=== PATIENT | female | born 1955 | race Caucasian/White ===

== ENCOUNTER 2025-04-19 15:59 | Emergency (ER) | payer BC, MEDICARE ==
[~2025-04-19] VITALS: Ht 172.7 cm; Wt 78.2 kg
[~2025-04-19 15:59] MED LIST: HYDR12.55 PO; LISI40TA13 PO
--- NOTE | 2025-04-19 16:10 | ELECTROCARDIOGRAPH REPORT ---
[facility] Test Date: 2025-04-19 Test Time: 16:07:32 Pat Name: WILLIAM RODRIGUEZ Department: EMERGENCY ROOM Room: Gender: F Mechanic Insulator: CELI : 1955 Requested By: PEDRO LEBLANC Order Number: [id number] Reading MD: Measurements Intervals [place] Rate: 85 P: 0 SD: 0 QRS: 27 QRSD: 95 T: 71 QT: 394 QTc: 469 Interpretive Statements Atrial fibrillation Borderline T abnormalities, anterior leads Please click the below link to view image of tracing.
--- NOTE | 2025-04-19 16:41 | RADIOLOGY REPORT ---
CHEST RADIOGRAPH Indication: CP Technique: Single frontal view of the chest was obtained Comparison: DI CHEST,SINGLE VIEW on DOS: 07/01/23 FINDINGS: Lines and Tubes: None Lungs: No focal consolidation. Pleura: No effusion. No pneumothorax. Cardiomediastinal contours: Mild global cardiomegaly. Uncoiling atherosclerotic change thoracic aorta Bones: No acute osseous abnormality. Deformity of the right ribs suggesting old right ribs fractures IMPRESSION: 1. Mild cardiomegaly 2. No evidence of airspace consolidation or pulmonary venous congestion.
[2025-04-19 17:25] LABS: BASOPHILS # (AUTO) 0.1 X10'3 (0-0.2); BASOPHILS % (AUTO) 1.2 % (0-1); EOSINOPHILS # (AUTO) 0.2 X10'3 (0-0.9); EOSINOPHILS % (AUTO) 2.5 % (0-6); HEMOGLOBIN 13.7 g/dl (12.0-16.0); LYMPHOCYTES # (AUTO) 1.9 X10'3 (1.1-4.8); LYMPHOCYTES % (AUTO) 28.2 % (21-51); MEAN CORPUSCULAR HEMOGLOBIN 28.6 PG (27.0-31.0); MEAN CORPUSCULAR HGB CONC 32.5 g/dL (33.0-36.5); MEAN PLATELET VOLUME 9.5 FL (7.4-10.4); MONOCYTES # (AUTO) 0.8 X10'3 (0-0.9); MONOCYTES % (AUTO) 12.6 % (2-12); NEUTROPHILS # (AUTO) 3.7 X10'3 (1.8-7.7); NEUTROPHILS % (AUTO) 55.5 % (42-75); PLATELET COUNT 212 X10'3 (140-440); RED BLOOD COUNT 4.78 X10'6 (4.20-5.60); RED CELL DISTRIBUTION WIDTH 15.3 % (11.5-14.5); WHITE BLOOD COUNT 6.7 X10'3 (4.5-11.0)
[2025-04-19 17:33] LABS: ALANINE AMINOTRANSFERASE 35 U/L (12-78); ALBUMIN 3.5 G/DL (3.4-5.0); ALBUMIN/GLOBULIN RATIO 0.9 (1.1-1.5); ALKALINE PHOSPHATASE 89 IU/L (46-116); ANION GAP 8 (8-16); ASPARTATE AMINO TRANSFERASE 24 U/L (10-37); BILIRUBIN,TOTAL 0.6 MG/DL (0.1-1.0); BLOOD UREA NITROGEN 28 MG/DL (7-18); BUN/CREATININE RATIO 22.6 (10.0-20.0); CALCIUM 8.7 MG/DL (8.5-10.1); CHLORIDE 102 MMOL/L (99-107); CREATININE 1.24 MG/DL (0.40-0.90); GLUCOSE 118 MG/DL (70-104); POTASSIUM 3.7 MMOL/L (3.5-5.1); SODIUM 139 MMOL/L (135-145); TOTAL PROTEIN 7.6 G/DL (6.4-8.2); eCRCL 44 ML/MIN; eGFR 43 ML/MIN
[2025-04-19 17:41] LABS: PRO BRAIN NATRIURETIC PEPTIDE 1112 PG/ML (0-125)
--- NOTE | 2025-04-19 20:22 | Physician Documentation ---
History of Present Illness ~ Chief Complaint: Shortness of Breath Stated Complaint: AFIB Time Seen by MD: 20:14 Source: patient HPI 69-year-old female, with a reported history of atrial fibrillation and CHF, presenting with shortness of breath and rapid heart rate. She tells me that she was recently at the hospital in [place], and was admitted for atrial fibrillation with RVR. She is being treated with metoprolol, Eliquis, and diuretics. She was actually discharged from the hospital, told to wear a external defibrillator. She then developed worsening shortness of breath, returns to the emergency department and was admitted to the hospital again. She tells me that they had trouble controlling her heart rate, and told her today that they were going to try an experimental treatment. She became scared so she left AMA, and came here. She does report ongoing tachycardia and exertional shortness of breath. However she tells me that her shortness of breath has significantly improved, she can walk farther than she did before. Her legs are less swollen than they were previously. She is not having any significant chest pain. She denies any other new or worsening symptoms. Medication Reconciliation Allergies: Coded Allergies: Penicillins (Verified Allergy, Unknown, 04/19/25) morphine (Verified Allergy, Unknown, puts patient into a-fib, 04/19/25) Uncoded Allergies: TOMATOES (Allergy, Severe, THROAT SWELLING, 07/01/23) Scheduled Hydrochlorothiazide (Hydrochlorothiazide), 1 TAB PO DAILY, (Reported) Lisinopril* (Lisinopril*), 1 TAB PO DAILY, (Reported) Past Medical History Past Medical History: Atrial Fibrillation, Asthma Past Surgical History: noncontributory Patient History: Patient reports no known family medical history. Alcohol Use: Other Drug Use: other Review of Systems Constitutional: Denies: fever Respiratory: Reports: SOB with exertion Cardiovascular: Reports: edema; Denies: chest pain Physical Exam Vital Signs: Temperature: 98.9, Source: Temporal, Heart Rate: 112, Respiratory Rate: 14, BP: 123/82, Pulse Oximetry: 97, Weight: 78.150 Oxygen Flow Rate: 0 Physical Exam General: This is a pleasant and currently overall well-appearing middle-aged woman, daughter at bedside HEENT: Atraumatic, oropharynx is moist Heart: Tachycardic, appears irregular, appears atrial fibrillation on the monitor, heart rate between 110-120 during my exam Lungs: Diminished breath sounds bilateral, normal work of breathing at rest and speaking in full sentences, normal oxygen saturation on room air Extremities: Warm and well-perfused. Mild pitting edema to both calves Neuro: Alert and oriented, no focal deficits Psychiatric: Calm and cooperative with exam Progress Results/Orders Results/Orders Orders - EDEL SMITH MD General Nursing Order (04/19/25 ) General Nursing Order (04/19/25 ) Vital Signs 04/19/25 04/19/25 04/19/25 04/19/25 16:00 19:52 20:51 20:56 Temp 98.9 98.9 Pulse 117 112 121 Resp 15 14 28 21 B/P (MAP) 130/73 123/82 (96) 124/81 (95) Pulse Ox 97 97 95 O2 Flow Rate 0 0 04/20/25 00:16 Temp 98.9 Pulse 104 Resp 24 B/P (MAP) 120/85 Pulse Ox 95 Laboratory Tests Test 04/19/25 17:07 04/19/25 18:12 04/19/25 19:18 White Blood Count 6.7 Red Blood Count 4.78 Hemoglobin 13.7 Hematocrit 42.0 Mean Corpuscular Volume 88.0 Mean Corpuscular Hemoglobin 28.6 Mean Corpuscular Hemoglobin Concent 32.5 L Red Cell Distribution Width 15.3 H Platelet Count 212 Mean Platelet Volume 9.5 Neutrophils (%) (Auto) 55.5 Lymphocytes (%) (Auto) 28.2 Monocytes (%) (Auto) 12.6 H Eosinophils (%) (Auto) 2.5 Basophils (%) (Auto) 1.2 H Neutrophils # (Auto) 3.7 Lymphocytes # (Auto) 1.9 Monocytes # (Auto) 0.8 Eosinophils # (Auto) 0.2 Basophils # (Auto) 0.1 CBC Comment Sodium Level 139 Potassium Level 3.7 Chloride Level 102 Carbon Dioxide Level 29.0 Anion Gap 8 Blood Urea Nitrogen 28 H Creatinine 1.24 H Estimated GFR/1.73 m2 43 BUN/Creatinine Ratio 22.6 H Glucose Level 118 H Calcium Level 8.7 Total Bilirubin 0.6 Aspartate Amino Transf (AST/SGOT) 24 Alanine Aminotransferase (ALT/SGPT) 35 Alkaline Phosphatase 89 Troponin I High Sensitivity 9 11 9 Pro-B-Type Natriuretic Peptide 1112 H Total Protein 7.6 Albumin 3.5 Globulin 4.1 Albumin/Globulin Ratio 0.9 L Chemistry Comments Troponin I High Sens Percent Delta 22 18 Troponin I Hi Sens Absolute Change 2 -2 Re-Evaluation Re-evaluation : Progress Ambulation trial: The patient ambulates without significant shortness of breath or hypoxia EKG/XRAY/CT/US/VASC/MRI EKG : Additional Comment I personally interpreted the EKG and this shows: Atrial fibrillation, rate 85, QTC 469, nonspecific T-wave changes but no acute STEMI Chest X-Ray : Additional Comments I personally reviewed the x-ray, and it shows: Enlarged heart, but no significant pulmonary edema, no focal consolidation Medical Decision Making Additional info obtained from: other Findings Reviewed outside hospital records from [facility]: The patient has a history of methamphetamine use, recent diagnosis of atrial fibrillation with RVR, metoprolol and Eliquis. She had presented with significant RVR, and was treated with metoprolol and diltiazem. She was admitted for further treatment. Additional Infomation Atrial fibrillation, other dysrhythmia, congestive heart failure exacerbation, medication problem, electrolyte derangement Assessment The patient presents with atrial fibrillation and findings consistent with CHF, although she does not have findings to suggest an acute exacerbation. Her laboratory testing is unremarkable, except for an elevated BNP consistent with CHF. She reports having an EF of less than 25%. I was able to obtain outside records from her recent hospitalization, which shows treatment for atrial fibrillation with RVR and CHF. I had a long shared decision-making conversation with the patient and her family. I explained her diagnosis and treatment. I did offer admission for further rate control and medication adjustment. However, the patient is minimally symptomatic, was not really short of breath and did not have significant leg swelling compared to previous. She did not want to be admitted to the hospital again. After this discussion, we agreed on the following plan: She will be discharged home with an increased to metoprolol 150 mg twice a day has a temporary adjustment try and control her heart rate better. She will continue with her other medications. Information was given for the cardiology clinic. She will contact her primary care clinic for re-evaluation within 1 week, as well as medication adjustment. If she does develop any worsening symptoms to suggest worsening RVR or congestive heart failure, she will return here to this emergency department for further evaluation and treatment. She felt comfortable with this plan and was in agreement with discharge, did not want to be admitted to the hospital. Departure Time of Disposition: 00:09 Disposition: 01 HOME / SELF CARE / HOMELESS Impression: Primary Impression: Atrial fibrillation with RVR Additional Impression: Congestive heart failure Condition: Stable Discharge Instructions: Heart Failure, Diagnosis Referrals: NO PRIMARY CARE PROVIDER (PCP) Education Educated: Patient, Family Educated regarding: diagnosis, treatment, need for follow up Signature Scribe Signature: cristi Attestation: EDEL Rodriguez MD April 19, 2025 20:21
[2025-04-20 00:16] VITALS: BP 120/85; PULSE 104; RESP 24; TEMP 98.9; O2SAT 95
== END 2025-04-20 00:16 | disposition home or self-care (01) ==
LOC: ER 15:59
DX: I48.20 Chronic atrial fibrillation, unspecified (principal); I50.9 Heart failure, unspecified; J45.909 Unspecified asthma, uncomplicated; Z88.0 Allergy status to penicillin; Z88.5 Allergy status to narcotic agent; Z88.8 Allergy status to other drugs, medicaments and biological substances
CPT/HCPCS: 36415; 71045; 80053; 83880; 84484; 85025; 93005; 99285

== ENCOUNTER 2025-05-02 01:38 | Inpatient (IN) | payer BC, MEDICAID ==
[2025-05-02] VITALS (18 sets, daily range): BP systolic 96–118; BP diastolic 51–91; PULSE 74–131; RESP 12–32; TEMP 96.9–98; O2SAT 83–99
[~2025-05-02] VITALS: Ht 172.7 cm; Wt 98.0 kg
[2025-05-02 02:07] LABS: BASOPHILS # (AUTO) 0.1 X10'3 (0-0.2); BASOPHILS % (AUTO) 1.4 % (0-1); EOSINOPHILS # (AUTO) 0.2 X10'3 (0-0.9); EOSINOPHILS % (AUTO) 2.9 % (0-6); HEMATOCRIT 40.3 % (35.0-45.0); LYMPHOCYTES # (AUTO) 2.2 X10'3 (1.1-4.8); LYMPHOCYTES % (AUTO) 35.2 % (21-51); MEAN CORPUSCULAR HGB CONC 32.4 g/dL (33.0-36.5); MEAN CORPUSCULAR VOLUME 89.4 FL (78-98); MEAN PLATELET VOLUME 11.4 FL (7.4-10.4); MONOCYTES # (AUTO) 0.7 X10'3 (0-0.9); MONOCYTES % (AUTO) 11.2 % (2-12); NEUTROPHILS # (AUTO) 3.1 X10'3 (1.8-7.7); NEUTROPHILS % (AUTO) 49.3 % (42-75); PLATELET COUNT 175 X10'3 (140-440); RED CELL DISTRIBUTION WIDTH 16.1 % (11.5-14.5); WHITE BLOOD COUNT 6.3 X10'3 (4.5-11.0)
[2025-05-02 02:24] LABS: ALBUMIN 3.6 G/DL (3.4-5.0); ANION GAP 10 (8-16); BLOOD UREA NITROGEN 29 MG/DL (7-18); BUN/CREATININE RATIO 21.5 (10.0-20.0); CALCIUM 9.1 MG/DL (8.5-10.1); CHLORIDE 105 MMOL/L (99-107); CREATININE 1.35 MG/DL (0.40-0.90); GLUCOSE 148 MG/DL (70-104); PRO BRAIN NATRIURETIC PEPTIDE 2043 PG/ML (0-125); SODIUM 142 MMOL/L (135-145); TOTAL CARBON DIOXIDE 26.6 MMOL/L (24-32); eCRCL 40 ML/MIN; eGFR 39 ML/MIN
--- NOTE | 2025-05-02 02:41 | Physician Documentation ---
History of Present Illness ~ Chief Complaint: Shortness of Breath Stated Complaint: SOB CHEST PAIN Time Seen by MD: 02:37 HPI Patient presents to the emergency room with increasing shortness of breath. She was seen here 1-[address] Coleman with a CHF exacerbation and medication adjustments and instructions to follow up with her doctor. Since her discharge symptoms have continued to worsen she can barely walk and she feels that she needs admission at this juncture. She denies chest pain. Medication Reconciliation Allergies: Coded Allergies: Penicillins (Verified Allergy, Unknown, 05/02/25) morphine (Verified Allergy, Unknown, puts patient into a-fib, 05/02/25) Uncoded Allergies: TOMATOES (Allergy, Severe, THROAT SWELLING, 07/01/23) Scheduled Hydrochlorothiazide (Hydrochlorothiazide), 1 TAB PO DAILY, (Reported) Lisinopril* (Lisinopril*), 1 TAB PO DAILY, (Reported) Past Medical History Past Medical History: Atrial Fibrillation, Asthma Past Surgical History: noncontributory Patient History: Patient reports no known family medical history. Alcohol Use: Other Drug Use: other Review of Systems ROS All review of systems negative except as per HPI Physical Exam Vital Signs: Temperature: 98.7, Source: Oral, Heart Rate: 126, Respiratory Rate: 33, BP: 105/68, Pulse Oximetry: 99, Weight: 100.200 Oxygen Flow Rate: 0 Physical Exam General: Patient is awake, alert, oriented x4 in mild distress, dyspneic Head: Normocephalic and atraumatic. Eyes: Conjunctival normal. EOMI. PERRL. ENT: Mucous membranes moist. Neck: Supple, trachea is midline. Chest: Diminished breath sounds bilaterally with bilateral crackles. There is no accessory muscle use or retractions. Cardiac: Tachycardic and irregular without murmurs, gallops, or rubs. Progress Results/Orders Results/Orders Orders - NEGRO CURRY MD Chest,Single View (05/02/25 01:45) Monitor (05/02/25 01:45) Saline Lock (05/02/25 01:45) Oxygen (05/02/25 01:45) Electrocardiogram (05/02/25 01:45) Hs Troponin I W Calculations (05/02/25 03:45) Hs Troponin I W Calculations (05/02/25 04:45) Completed Orders - NEGRO CURRY MD Chest,Single View (05/02/25 01:45) Cbc/Diff (05/02/25 01:45) BMP (05/02/25 01:45) PBNP (05/02/25 01:45) Hs Troponin I W Calculations (05/02/25 01:45) Vital Signs 05/02/25 05/02/25 01:43 02:26 Temp 98.7 Pulse 94 126 Resp 18 33 B/P (MAP) 145/80 105/68 (80) Pulse Ox 99 99 O2 Flow Rate 0 Laboratory Tests Test 05/02/25 01:50 White Blood Count 6.3 Red Blood Count 4.50 Hemoglobin 13.0 Hematocrit 40.3 Mean Corpuscular Volume 89.4 Mean Corpuscular Hemoglobin 29.0 Mean Corpuscular Hemoglobin Concent 32.4 L Red Cell Distribution Width 16.1 H Platelet Count 175 Mean Platelet Volume 11.4 H Neutrophils (%) (Auto) 49.3 Lymphocytes (%) (Auto) 35.2 Monocytes (%) (Auto) 11.2 Eosinophils (%) (Auto) 2.9 Basophils (%) (Auto) 1.4 H Neutrophils # (Auto) 3.1 Lymphocytes # (Auto) 2.2 Monocytes # (Auto) 0.7 Eosinophils # (Auto) 0.2 Basophils # (Auto) 0.1 CBC Comment Sodium Level 142 Potassium Level 4.0 Chloride Level 105 Carbon Dioxide Level 26.6 Anion Gap 10 Blood Urea Nitrogen 29 H Creatinine 1.35 H Estimated GFR/1.73 m2 39 BUN/Creatinine Ratio 21.5 H Glucose Level 148 H Calcium Level 9.1 Troponin I High Sensitivity 7 Pro-B-Type Natriuretic Peptide 2043 H Albumin 3.6 Chemistry Comments EKG/XRAY/CT/US/VASC/MRI EKG : Additional Comment EKG interpreted by myself shows time of 0142, rate 120, AFib RVR, normal axis, nonspecific ST-T changes Chest X-Ray : Additional Comments One view chest x-ray interpreted by myself shows enlarged cardiac silhouette, pulmonary congestion, no pneumothorax Medical Decision Making Findings Patient presents in the emergency room with dyspnea as per HPI. Differentials include but are not limited to pneumonia, CHF, viral syndrome, pulmonary embolism therefore emergent labs and imaging indicated. History and physical exam consistent with CHF exacerbation. Patient was also noted to be in AFib RVR. We will admit for control of her heart rate it was well as diuresis. Departure Admitted to Inpatient Unit: yes, to hospitalist Impression: Primary Impression: CHF exacerbation Additional Impression: Atrial fibrillation with RVR Condition: Guarded Referrals: NO PRIMARY CARE PROVIDER (PCP) Signature Scribe Signature: No scribe Attestation: The note accurately reflects work and decisions made by me.Negro Curry MD 05/02/25 02:46 NEGRO CURRY MD May 02, 2025 02:41
[2025-05-02] MEDS ORDERED: diltiazem-D5W 125mg/125ml 125 ML IV SCH (02:50)
[2025-05-02] MEDS: furosemide 10 MG/1 ML 10ml inj IV ONE (02:59)
--- NOTE | 2025-05-02 03:01 | RADIOLOGY REPORT ---
CHEST RADIOGRAPH Indication: CP Technique: Single frontal view of the chest was obtained COMPARISON: DI CHEST,SINGLE VIEW on DOS: 04/19/25 FINDINGS: Lines and Tubes: None Lungs: Grossly stable appearing diffuse increased prominence of the pulmonary vasculature without isabela dence of focal consolidation. Pleura: No effusion. No pneumothorax. Cardiomediastinal contours: Cardiomegaly. Bones: Unremarkable IMPRESSION: 1. Stable diffuse increased prominence of the pulmonary vasculature. These findings may be consistent with pulmonary vascular congestion. 2. Cardiomegaly.
[2025-05-02] MEDS: diltiazem-NS 100mg/100ml 100 ML IV SCH (03:39)
[2025-05-02] MEDS ORDERED: ipratropium/albuterol 3ml nebule NEB PRN (03:40)
[2025-05-02] MEDS: diltiazem-NS 100mg/100ml 100 ML IV ONE (03:40)
--- NOTE | 2025-05-02 03:53 | HISTORY AND PHYSICAL-Residence ---
History & Physical Providers to CC Resident Creating Document: LEYLA JONES RES ~ History of Present Illness Reason for Admit\Complaint: SOB History of Present Illness This is a 69-year-old female with PMH of CHF, AFib, COPD, and hypertension, who presents to ER with progressively worsening shortness of breath over the past three weeks. She was previously admitted at [facility] [place] for CHF exacerbation around three weeks ago. She visited our ER on April 19 with similar complaints but declined admission at that time. Since then, her symptoms have worsened significantly. She now endorses orthopnea but denies PND. She also reports unable to walk a few yd without being breathless. She also reports occasional productive cough with the occasional sputums. She is an ex-smoker with a 50 pack year history and quit five years ago. She is not on home oxygen. I have discussed advance care planning with the patient. The patient has decided on a full code status. Allergies: Coded Allergies: Penicillins (Verified Allergy, Unknown, 05/02/25) morphine (Verified Allergy, Unknown, puts patient into a-fib, 05/02/25) Uncoded Allergies: TOMATOES (Allergy, Severe, THROAT SWELLING, 07/01/23) Home Medications Home Medications Active Reported Hydrochlorothiazide 12.5 Mg Tablet 1 Tab PO DAILY 30 Days Lisinopril* (Lisinopril) 40 Mg Tablet 1 Tab PO DAILY 30 Days Past Medical History Past Medical History COPD, CHF, hypertension, atrial fibrillation Past Surgical History Surgical History Comment , left calf surgery Family History Family History: Patient reports no known family medical history. Past Social History Social History Comment Lives by herself, ex-smoker; 50 pack smoking history, alcohol use disorder, quit one month ago, endorses history of methamphetamine use; quit one month ago Alcohol Use: Other Drug Use: Other ROS All Other Systems: Reviewed and Negative ROS As stated above in the HPI, otherwise all systems are reviewed and negative. Exam Vitals: Vital Signs Date Time Temp Pulse Resp B/P (MAP) Pulse Ox O2 Delivery O2 Flow Rate FiO2 05/02/25 03:40 97 Room Air* 0 21 05/02/25 03:39 123 111/85 05/02/25 03:30 28 05/02/25 01:43 98.7 General: Breathless, unable to speak full sentence, multiple pauses HEENT: Conjunctiva pink, Sclera clear, Mucus Membranes moist. Neck: Supple without masses and tenderness. Resp: Bilateral basilar crackles, diffuse expiratory wheezing Heart: Regular Rate and rhythm, normal S1 and S2 without murmur, rub or gallop. Abdomen: Soft and non tender no organomegaly Extremities: Bilateral 1+ pedal edema Skin: Warm and Dry. Diagnostic Data Last Recorded Lab Results: 05/02/25 0150 05/02/25 0150 Advance Care Planning Advanced Care plannin - 30 Minutes Additional Plan Assessment and plan This is a 69-year-old female with PMH of CHF, AFib, COPD, and hypertension, who presents to ER with progressively worsening shortness of breath over the past three weeks. She was previously admitted at [facility] [place] for CHF exacerbation around three weeks ago. She visited our ER on April 19 with similar complaints but declined admission at that time. Since then, her symptoms have worsened significantly. She now endorses orthopnea but denies PND. She also reports unable to walk a few yd without being breathless. Acute on chronic CHF exacerbation; reduced vs preserved EF Volume overloaded, possibly triggered by AFib Orthopnea, inability to speak in full sentence, CXR with pulmonary vascular congestions, proBNP > 2000 Maintain SpO2 90-94% - If respiratory distress, respiratory acidosis, and/or hypoxia persist on oxygen therapy, use BiPAP Patient is in acute decompensation and evidence of volume overload is conspicuous; IV Lasix 60 mg bollus, then 40 mg IV BID. If patient is allergic to loop diuretics, then Bumetanide - 1 mg IV Lasix 40 mg IV given in ER Continue Lasix 40 mg IV b.i.d. Follow echo Strictly monitor NOVA's Heart healthy diet- Sodium restriction <2gm/day; fluid restriction 1.5 L/day Optimize management of HTN and A-fib, Initiate/resume GDMT when patient becomes stable Acute exacerbation of COPD: Maintain oxygen saturation between 90-94%; supplemental O2 via nasal canula if SpO2 <90% Solu-Medrol 125 mg IV bolus given Solu-Medrol 40 Mg IV twice daily Ceftriaxone 1 g IV daily Azithromycin 500 mg IV daily DuoNeb nebulization every 4 hours as scheduled, and every 4 hours as needed Incentive spirometry Paroxysmal atrial fibrillation with RVR; 130s Hemodynamically stable Cardizem initiated in ER Telemetry monitoring Assess need for rhythm control if poor response to rate control or recurrent symptoms Eliquis 5 mg twice daily Acute kidney injury; likely renal tubular stenosis Monitor BMP Avoid nephrotoxic medications Follow urine lytes Hypertension, chronic Monitor closely, resume/HS antihypertensive regime once volume status is optimized Code status: Full code DVT prophylaxis: Blanka Jones Internal Medicine Resident Date of Service: May 02, 2025 Billing Provider: VERONICA COLEY MD, SHAMS, RES May 02, 2025 03:53
[2025-05-02] MEDS: ipratropium/albuterol 3ml nebule NEB SCH (03:55)
[2025-05-02 04:10] LABS: C-REACTIVE PROTEIN 0.56 MG/DL (0.0-0.5)
[2025-05-02] MEDS ORDERED: potassium Cl 40MEQ/1/2NS 520ml 520 ML IV PRN (04:20)
[2025-05-02] MEDS ORDERED: magnesium Cl slow-release 64mg tablet PO PRN (04:20)
[2025-05-02] MEDS ORDERED: potassium Cl 20 mEq SR tablet PO PRN ×2 (04:20)
[2025-05-02] MEDS ORDERED: magnesium sulf-water 4G/100mL 100 ML IV PRN (04:20)
[2025-05-02] MEDS ORDERED: acetaminophen 325mg tablet PO PRN (04:20)
[2025-05-02] MEDS ORDERED: ondansetron/PF 4mg/2ml inj IV PRN (04:20)
[2025-05-02] MEDS ORDERED: magnesium sulf-water 2g/50mL 50 ML IV PRN (04:20)
[2025-05-02 04:26] LABS: URINE AMPHETAMINE SCREEN NEGATIVE (Neg); URINE BARBITUATE SCREEN NEGATIVE (Neg); URINE BENZODIAZEPINES SCREEN NEGATIVE (Neg); URINE CANNABINOID SCREEN POSITIVE (Neg); URINE COCAINE SCREEN NEGATIVE (Neg); URINE METHADONE SCREEN NEGATIVE (Neg); URINE OPIATE SCREEN NEGATIVE (Neg); URINE PHENCYCLIDINE SCREEN NEGATIVE (Neg)
[2025-05-02] MEDS: methylPREDNISolone sod succ 125mg/2ml vial IV ONE (04:30)
[2025-05-02] MEDS ORDERED: FURO20TA4 PO (04:35)
[2025-05-02] MEDS ORDERED: METO100T14 PO (04:35)
[2025-05-02] MEDS ORDERED: SPIR25TA5 PO (04:35)
[2025-05-02] MEDS ORDERED: APIX5TAB3 PO (04:35)
[2025-05-02] MEDS: PERFLUTREN PROTEIN-A MICROSPHR (Optison) 0.22 MG/ML 3ML VIAL IV ONE (04:36)
[2025-05-02] MEDS: CefTRIAXone/D5W-Rocephin 1gm 50 ML IV SCH (04:40)
[2025-05-02 05:02] LABS: HEMOGLOBIN A1C 6.7 % (4.5-6.2)
[2025-05-02] MEDS: diphenhydrAMINE 50 mg/ml inj IV ONE (05:17)
[2025-05-02] MEDS ORDERED: HYDR12.55 PO (05:39)
[2025-05-02] MEDS: metoprolol tartrate 1mg/ml inj IV ONE (05:54)
[2025-05-02] MEDS: azithromycin/NS 500mg/250ml 250 ML IV SCH (06:01)
[2025-05-02] MEDS: amiodarone 150mg/dext, iso-os 100 ML IV ONE (06:10)
[2025-05-02] MEDS: amiodarone/D5 360MG/200ML BAG 200 ML IV SCH (06:30)
[2025-05-02] MEDS: K and/or MAG REPLACEMENT MC SCH (08:00)
--- NOTE | 2025-05-02 08:02 | ELECTROCARDIOGRAPH REPORT ---
[facility] Test Date: 2025-05-02 Test Time: 01:42:22 Pat Name: WILLIAM RODRIGUEZ Department: EMERGENCY ROOM Room: [place] [address] A Gender: F Floors Buffer: : 1955 Requested By: SHI ARCE Order Number: [id number] Reading MD: Dr. Les Fierro Measurements Intervals [place] Rate: 120 P: 0 WI: 0 QRS: 49 QRSD: 89 T: 174 QT: 319 QTc: 451 Interpretive Statements Atrial fibrillation Repol abnrm suggests ischemia, lateral leads Baseline wander in lead(s) II,III,aVF Electronically Signed On 05-02-2025 11:29:[address] Les Fierro Please click the below link to view image of tracing.
[2025-05-02] MEDS: apixaban 5mg tablet PO SCH (08:10)
[2025-05-02] MEDS: furosemide 10 MG/1 ML 10ml inj IV SCH (08:10)
--- NOTE | 2025-05-02 21:51 | PROGRESS NOTE ---
Daily Progress Note Providers to CC ~ Antibiotic Timeout Antibiotic Ordered?: No Subjective The patient is allergic reaction to diltiazem and now is on an amiodarone drip for her AFib RVR the patien's echocardiogram demonstrated an LVEF of 45% for which the patient told me this is improved the prior echocardiogram demonstrated a LVEF of 25%. Patient has not now been titrated off of oxygen Objective Vital Signs Date Time Temp Pulse Resp B/P (MAP) Pulse Ox O2 Delivery O2 Flow Rate FiO2 05/02/25 20:25 109 24 Room Air 0.0 05/02/25 20:20 92 21 05/02/25 15:00 97.6 115/89 (98) Result Diagram: 05/02/25 0150 05/02/25 0150 Gen. No acute distress alert and oriented 4 Lungs clear to ascultation bilaterally, no wheezes rales or rhonchi appreciated Heart normal sinus rhythm no murmurs rubs or clicks noted Abdomen soft nontender bowel sounds are normoactive Lower extremities no clubbing cyanosis, 1+ edema appreciated bilaterally Problem\Assessment\Plan #Acute exacerbation of chronic HFrEF: Continue IV Lasix 40 mg b.i.d. Echocardiogram demonstrated LVEF of 45% # moderate to severe tricuspid valve regurgitation # moderate mitral valve regurgitation Follow up with agricultural engineering technicians in the outpatient setting # acute exacerbation of chronic COPD Maintain oxygen saturation between 90-94%; supplemental O2 via nasal canula if SpO2 <90% Solu-Medrol 125 mg IV bolus given Solu-Medrol 40 Mg IV twice daily Ceftriaxone 1 g IV daily Azithromycin 500 mg IV daily DuoNeb nebulization every 4 hours as scheduled, and every 4 hours as needed Incentive spirometry # atrial fibrillation rapid ventricular response Has a allergic reaction to diltiazem On amiodarone drip And apixaban 5 mg b.i.d. for DVT and stroke prophylaxis #CRYSTAL Monitor daily metabolic panel Date of Service: May 02, 2025 Billing Provider: BERENICE TAYLOR DO Common Visit Codes: NOT BILLABLE (Admitted after midnight to be billed by safety and health consultant) BERENICE TAYLOR DO May 02, 2025 21:50
[2025-05-02] MEDS: furosemide 40mg/4ml inj IV SCH (21:56)
[2025-05-02] MEDS: methylPREDNISolone sod succ/PF 40mg inj. IV SCH (21:56)
[2025-05-03] VITALS (30 sets, daily range): BP systolic 99–123; BP diastolic 60–98; PULSE 79–152; RESP 14–22; TEMP 97.2–97.9; O2SAT 91–98
[2025-05-03 08:11] LABS: BASOPHILS % (AUTO) 0.4 % (0-1); EOSINOPHILS % (AUTO) 0.1 % (0-6); HEMATOCRIT 39.4 % (35.0-45.0); HEMOGLOBIN 12.7 g/dl (12.0-16.0); LYMPHOCYTES # (AUTO) 0.7 X10'3 (1.1-4.8); LYMPHOCYTES % (AUTO) 6.3 % (21-51); MEAN CORPUSCULAR HEMOGLOBIN 28.6 PG (27.0-31.0); MEAN CORPUSCULAR HGB CONC 32.2 g/dL (33.0-36.5); MEAN CORPUSCULAR VOLUME 88.8 FL (78-98); MEAN PLATELET VOLUME 11.8 FL (7.4-10.4); MONOCYTES # (AUTO) 0.5 X10'3 (0-0.9); MONOCYTES % (AUTO) 4.7 % (2-12); NEUTROPHILS % (AUTO) 88.5 % (42-75); PLATELET COUNT 164 X10'3 (140-440); RED BLOOD COUNT 4.44 X10'6 (4.20-5.60); RED CELL DISTRIBUTION WIDTH 16.3 % (11.5-14.5); WHITE BLOOD COUNT 11.4 X10'3 (4.5-11.0)
[2025-05-03 08:30] LABS: ALANINE AMINOTRANSFERASE 43 U/L (12-78); ALBUMIN 3.6 G/DL (3.4-5.0); ALBUMIN/GLOBULIN RATIO 0.9 (1.1-1.5); ALKALINE PHOSPHATASE 73 IU/L (46-116); ANION GAP 16 (8-16); ASPARTATE AMINO TRANSFERASE 27 U/L (10-37); BILIRUBIN,TOTAL 0.6 MG/DL (0.1-1.0); BLOOD UREA NITROGEN 41 MG/DL (7-18); CALCIUM 8.9 MG/DL (8.5-10.1); CHLORIDE 102 MMOL/L (99-107); CHOL/HDL RATIO 3.8 (0.00-4.99); CHOLESTEROL 137 MG/DL (0-200); CREATININE 2.05 MG/DL (0.40-0.90); GLUCOSE 208 MG/DL (70-104); HDL CHOLESTEROL 36 MG/DL (35-60); LDL CHOLESTEROL 82 MG/DL (50-100); POTASSIUM 4.3 MMOL/L (3.5-5.1); SODIUM 141 MMOL/L (135-145); TOTAL CARBON DIOXIDE 22.9 MMOL/L (24-32); TOTAL PROTEIN 7.4 G/DL (6.4-8.2); TRIGLYCERIDES 133 MG/DL (20-135); eCRCL 26 ML/MIN; eGFR 24 ML/MIN
[2025-05-03] MEDS ORDERED: glucagon, human recombinant 1mg kit SUBCUT PRN (10:15)
[2025-05-03] MEDS ORDERED: DEXTROSE 15 GM of carb/4 tabs (each vial/BOTTLE has 4 tablets) PO PRN ×2 (10:15)
[2025-05-03] MEDS ORDERED: dextrose 50%-water 50ml dispensing syringe IV PRN ×2 (10:15)
[2025-05-03] MEDS: metoprolol tartrate 50mg tablet PO SCH (12:38)
[2025-05-03] MEDS: INSULIN LISPRO 100 UNIT/ML INSULN.PEN MULTI-DOSE SQ SCH (12:48)
[2025-05-03] MEDS ORDERED: metoprolol tartrate 50mg tablet PO SCH (13:00)
[2025-05-03] MEDS: amiodarone 200mg tablet PO SCH (22:22)
[2025-05-03] MEDS: insulin glargine (Lantus) pen - multi-dose SQ SCH (22:36)
[2025-05-03] MEDS: temazepam 15mg capsule PO PRN (22:49)
--- NOTE | 2025-05-03 23:33 | PROGRESS NOTE ---
Daily Progress Note Providers to CC ~ Antibiotic Timeout Antibiotic Ordered?: Yes Subjective The patient states her breathing is improved the patient's heart rate was really fast this morning and I started the patient back on her metoprolol dose heart rate is improved to the 110s the patient informs me her heart rate at home is often in the 140s to 150s Objective Vital Signs Date Time Temp Pulse Resp B/P (MAP) Pulse Ox O2 Delivery O2 Flow Rate FiO2 05/03/25 23:08 113 20 Room Air 0.0 21 05/03/25 23:02 93 05/03/25 17:00 116/96 (103) 05/03/25 06:00 97.6 Result Diagram: 05/03/25 0739 05/03/25 0739 Gen. No acute distress alert and oriented 4 Lungs clear to ascultation bilaterally, no wheezes rales or rhonchi appreciated Heart irregular rhythm no murmurs rubs or clicks noted Abdomen soft nontender bowel sounds are normoactive Lower extremities no clubbing cyanosis, 1+ edema appreciated bilaterally Problem\Assessment\Plan #Acute exacerbation of chronic HFrEF: Continue IV Lasix 40 mg b.i.d. Echocardiogram demonstrated LVEF of 45% 05/03 Start losartan Started Jardiance DC IV Lasix and start p.o. Lasix due to worsening renal function # moderate to severe tricuspid valve regurgitation # moderate mitral valve regurgitation Follow up with bath mix operator in the outpatient setting # acute exacerbation of chronic COPD Maintain oxygen saturation between 90-94%; supplemental O2 via nasal canula if SpO2 <90% Solu-Medrol 125 mg IV bolus given Solu-Medrol 40 Mg IV twice daily Ceftriaxone 1 g IV daily Azithromycin 500 mg IV daily DuoNeb nebulization every 4 hours as scheduled, and every 4 hours as needed Incentive spirometry # atrial fibrillation rapid ventricular response Has a allergic reaction to diltiazem On amiodarone drip And apixaban 5 mg b.i.d. for DVT and stroke prophylaxis 05/03 went into a rapid AFib start the patient back on metoprolol tartrate 100 mg b.i.d. heart rate is improved the patient informs me that at baseline at home was in the 140s 150s #CRYSTAL Monitor daily metabolic panel 05/03 creatinine went up to two today thus I have stopped IV Lasix and started the patient on p.o. Lasix Date of Service: May 03, 2025 Billing Provider: BERENICE TAYLOR DO Common Visit Codes: [id number] INP/OBS CARE(HIGH) BERENICE TAYLOR DO May 03, 2025 23:33
[2025-05-04] VITALS (7 sets, daily range): BP systolic 101–115; BP diastolic 83–89; PULSE 65–122; RESP 16–28; TEMP 97.3–97.4; O2SAT 91–100
[2025-05-04] MEDS: nitroGLYCERIN 0.4mg SUBLingual tab SL PRN (00:24)
[2025-05-04] MEDS: benzonatate 100mg capsule PO PRN (04:55)
--- NOTE | 2025-05-04 07:22 | ELECTROCARDIOGRAPH REPORT ---
[facility] Test Date: 2025-05-04 Test Time: 00:08:25 Pat Name: WILLIAM RODRIGUEZ Department: [facility] 3S Patient ID: [id number] Room: [place] [address] A Gender: F Records Management Technician: : [id number] Requested By: BENNETT OLIVIA Order Number: [id number] Reading MD: Dr. Agustin Rodrigues Measurements Intervals Laie Rate: 131 P: 0 AK: 0 QRS: 42 QRSD: 93 T: 193 QT: 310 QTc: 458 Interpretive Statements Atrial fibrillation Nonspecific repol abnormality, diffuse leads Electronically Signed On 05-04-2025 19:12:[address] Agusitn Rodrigues Please click the below link to view image of tracing.
[2025-05-04 07:51] LABS: BASOPHILS % (AUTO) 0.3 % (0-1); EOSINOPHILS % (AUTO) 0 % (0-6); HEMATOCRIT 40.5 % (35.0-45.0); HEMOGLOBIN 13.3 g/dl (12.0-16.0); LYMPHOCYTES # (AUTO) 0.7 X10'3 (1.1-4.8); LYMPHOCYTES % (AUTO) 5.5 % (21-51); MEAN CORPUSCULAR HEMOGLOBIN 29.2 PG (27.0-31.0); MEAN CORPUSCULAR HGB CONC 32.8 g/dL (33.0-36.5); MEAN PLATELET VOLUME 12.1 FL (7.4-10.4); MONOCYTES # (AUTO) 0.6 X10'3 (0-0.9); MONOCYTES % (AUTO) 4.9 % (2-12); NEUTROPHILS # (AUTO) 11.5 X10'3 (1.8-7.7); NEUTROPHILS % (AUTO) 89.3 % (42-75); PLATELET COUNT 183 X10'3 (140-440); RED BLOOD COUNT 4.55 X10'6 (4.20-5.60); RED CELL DISTRIBUTION WIDTH 15.9 % (11.5-14.5); WHITE BLOOD COUNT 12.9 X10'3 (4.5-11.0)
[2025-05-04] MEDS: EMPAGLIFLOZIN 10 MG TABLET PO SCH (07:55)
[2025-05-04] MEDS: furosemide 20MG tablet PO SCH (07:55)
[2025-05-04] MEDS ORDERED: losartan 50mg tablet PO SCH (08:00)
[2025-05-04 08:11] LABS: ALANINE AMINOTRANSFERASE 47 U/L (12-78); ALBUMIN 3.4 G/DL (3.4-5.0); ALBUMIN/GLOBULIN RATIO 0.9 (1.1-1.5); ALKALINE PHOSPHATASE 75 IU/L (46-116); ANION GAP 13 (8-16); ASPARTATE AMINO TRANSFERASE 29 U/L (10-37); BILIRUBIN,TOTAL 0.6 MG/DL (0.1-1.0); BLOOD UREA NITROGEN 47 MG/DL (7-18); BUN/CREATININE RATIO 26.4 (10.0-20.0); CALCIUM 8.7 MG/DL (8.5-10.1); CHLORIDE 102 MMOL/L (99-107); CREATININE 1.78 MG/DL (0.40-0.90); MAGNESIUM 2.2 MG/DL (1.5-2.4); POTASSIUM 4.3 MMOL/L (3.5-5.1); SODIUM 140 MMOL/L (135-145); TOTAL PROTEIN 7.1 G/DL (6.4-8.2); eCRCL 31 ML/MIN; eGFR 28 ML/MIN
[2025-05-04 08:13] LABS: GLUCOSE 187 MG/DL (70-104)
[2025-05-04 08:14] LABS: ANISOCYTOSIS FEW; LARGE PLATELETS FEW; PLATELET ESTIMATE NORMAL; POLYCHROMASIA FEW
[2025-05-04] MEDS: losartan 25mg tablet PO SCH (11:26)
[2025-05-04] MEDS ORDERED: EMPA10TA PO (14:04)
[2025-05-04] MEDS ORDERED: AMI200T PO (14:04)
[2025-05-04] MEDS ORDERED: IPRA4AER IH (14:04)
[2025-05-04] MEDS ORDERED: ALBU8HFA INH (14:04)
[2025-05-04] MEDS ORDERED: PRED20TA PO (14:04)
[2025-05-04] MEDS ORDERED: LOSA25TA41 PO (14:04)
[2025-05-04] MEDS ORDERED: CEFD300C3 PO (14:06)
--- NOTE | 2025-05-04 16:18 | DISCHARGE SUMMARY ---
Discharge Summary Providers to CC ~ Discharge Summary Admission Diagnosis: CHF exacerbation Hospital Course DATE OF ADMISSION: 05/02/2025 DATE OF DISCHARGE: 05/04/2025 Discharge Diagnosis\\Comment: Acute exacerbation of chronic HFrEF, acute exacerbation of chronic COPD, atrial fibrillation with rapid ventricular response, moderate to severe tricuspid valve regurgitation and mitral valve regurgitation, CRYSTAL Operations\\Procedures: None Consultants: None Complications: None Condition on DC: Stable New Medications: albuterol inhaler (Pro-Air Inhaler) 8.5 Gm Inhaler 2 PUFFS INH Q6H PRN for shortness of breath, #1 INH Cefdinir* (Cefdinir*) 300 Mg Capsule 1 CAP PO Q12H, #6 CAP Ipratropium/Albuterol Sulfate (Combivent Respimat Inhal [place]) 20 Mcg-100 Mcg/Actuation Aer.w.adap 2 PUFFS IH Q6H PRN for SOB or wheezing, #1 INH Prednisone* (Prednisone*) 20 Mg Tablet 1 TAB PO DAILY, #5 TAB Amiodarone Hcl (Cordarone) 200 Mg Tablet 200 MG PO BID, #45 TAB Take one tablet twice a day for two weeks and then one tablet daily Empagliflozin (Jardiance) 10 Mg Tablet 10 MG PO DAILY, #30 TAB Losartan Potassium (Losartan Potassium) 25 Mg Tablet 25 MG PO DAILY, #30 TAB Continued Medications: Apixaban (Eliquis) 5 Mg Tablet 1 TAB PO BID Furosemide (Furosemide) 20 Mg Tablet 1 TAB PO DAILY Metoprolol Tartrate (Metoprolol Tartrate) 100 Mg Tablet 1 TAB PO BID Discontinued Medications: Hydrochlorothiazide (Hydrochlorothiazide) 12.5 Mg Tablet 1 TAB PO BID for 30 Days, #30 TAB 0 Refills Discharge Summary: The patient was admitted by resident physician LEYLA Gr under the supervision of VERONICA Gonzalez MD with the following HPI:"This is a 69-year-old female with PMH of CHF, AFib, COPD, and hypertension, who presents to ER with progressively worsening shortness of breath over the past three weeks. She was previously admitted at [facility] for CHF exacerbation around three weeks ago. She visited our ER on April 19 with similar complaints but declined admission at that time. Since then, her symptoms have worsened significantly. She now endorses orthopnea but denies PND. She also reports unable to walk a few yd without being breathless. She also reports occasional productive cough with the occasional sputums. She is an ex-smoker with a 50 pack year history and quit five years ago. She is not on home oxygen. I have discussed advance care planning with the patient. The patient has decided on a full code status." The patient stated that her breathing was improved when I saw her on the morning of the however the patient was not in rapid atrial fibrillation with a heart rate in the 140s to 150s. The patient is on 100 mg of metoprolol tartrate b.i.d. at home and had not received her metoprolol the patient is also on an amiodarone drip. Heart rate improved with the metoprolol on board however heart rate would jump up to the 120s at times, the patient informed me that was good that at home heart rate often is in the 150s to 160s. On the evening of the I discontinued the amiodarone drip and started the patient on p.o. amiodarone 200 mg b.i.d. the patient is heart rate improved and on the morning of discharge her heart rate was 65 with a activity went up to 110 that is the patient is c leared to be discharged. The patient was also treated for acute exacerbation of chronic HFrEF her EF is 40% which is improved from her previous EF of 25% per patient the patient has been on lisinopril previously which was restarted and I started the patient on Jardiance. The patient george continue her home dose of Lasix though she was treated with IV Lasix during hospitalization. The patient had acute exacerbation of chronic COPD and was on IV Solu-Medrol received nebulizer treatments as well as IV Rocephin the patient was discharged with a prescription for cefdinir and a prescription for 20 mg of p.o. prednisone for five days as well as a Combivent inhaler and an ProAir inhaler to use as needed. The patient has est-dbsyibj-exhnxlhkb diabetes mellitus the patient informed me that she was told she did not have diabetes however hemoglobin A1c is 6.6 thus the patient has diabetes the patient is on the hyper and hypoglycemic protocol and initially her blood sugars when 200s on the and thus I started the lashell ent on Lantus at night in her blood sugars improved however the patient is on steroids I did not discharge the patient with insulin though she will be on a low-dose so Jardiance she is to follow up with her primary care provider for management of her diabetes. We did discuss carb controlled diet and I gave the patient handout on low glycemic index and stressed the importance of being foods on the lower glycemic index and especially not eating potatoes. Gen. No acute distress alert and oriented 4 Lungs clear to ascultation bilaterally, no wheezes rales or rhonchi appreciated Heart normal sinus rhythm no murmurs rubs or clicks noted Abdomen soft nontender bowel sounds are normoactive Lower extremities no clubbing cyanosis, nor edema appreciated bilaterally The patient felt ready to be discharged and was medically cleared to be discharged on 05/04/2025 The patient was seen and evaluated on day of discharge. Time spent on discharge 40 minutes *Problems/Diagnosis: (1) Atrial fibrillation with RVR Status: Acute Total Time Spent on D/C: > 30 Minutes Date of Service: May 04, 2025 Billing Provider: BERENICE TAYLOR DO Common Visit Codes: 22485-TDQ/OBS DISCH DAY >30min BERENICE TAYLOR DO May 04, 2025 16:18
--- NOTE | 2025-05-04 17:03 | CARDIOLOGY REPORT ---
APPROVED REPORT EXAM: Comprehensive 2D, Doppler, and color-flow Echocardiogram. 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 113.8 cm/s AoV VTI 18.1 cm AO Peak GR. 5.2 mmHg AO Mean GR. 3 mmHg LVOT VTI 13.43 cm LVOT Peak Harinder. 83.8 cm/s CELINA(VTI)/BSA 2.78 cm2/m2 CELINA (VTI) 2.78 cm2 Mitral Valve MV E Velocity 104.5 cm/s MV Peak Gr. 7 mmHg MV DECEL TIME 192 ms MV PHT 44 ms MVA (PHT) 5.00 cm2 MR PKik191.5 cm/s MV VLyc736.4 cm/sMR PG Max77.6 mmHg Tricuspid Valve TR P. Velocity 267 cm/s RAP ESTIMATE 20 mmHg TR Peak Gr. 28 mmHg RVSP 48 mmHg LEFT VENTRICLE LV is normal in size with mild concentric hypertrophy. Overall systolic function appears mildly reduc ed. LVEF is 45%. RIGHT VENTRICLE RV appears mildly dilated with reduced contractility. RVSP is estimated at 48 mmHG. ATRIA Left atrium is moderately dilated. AORTIC VALVE Trileaflet AV appears sclerotic without stenosis. Trace insufficiency. MITRAL VALVE MV is thickened with mild annular calcification and no stenosis. Moderate mitral regurgitation. TRICUSPID VALVE The tricuspid valve is normal in structure. Moderate to severe tricuspid regurgitation with flow reve rsal in hepatic vein. PULMONIC VALVE The pulmonary valve is normal in structure. Trace pulmonic regurgitation. GREAT VESSELS The aortic root is normal in size. IVC is dilated and collapses less than 50% with inspiration. PERICARDIUM There is no pericardial effusion. Other Information Study Quality: Adequate Conclusion LV is normal in size with mild concentric hypertrophy. Overall systolic function appears mildly reduc ed.LVEF is 45%. RV appears mildly dilated with reduced contractility. RVSP is estimated at 48 mmHG. Left atrium is moderately dilated. Trileaflet AV appears sclerotic without stenosis. Trace insufficiency. MV is thickened with mild annular calcification and no stenosis. Moderate mitral regurgitation. The tricuspid valve is normal in structure. Moderate to severe tricuspid regurgitation with flow reve rsal in hepatic vein. The pulmonary valve is normal in structure. Trace pulmonic regurgitation. There is no pericardial effusion.
== END 2025-05-04 15:05 | disposition home or self-care (01) | DRG 291 ==
LOC: ER 01:38 → ED HOLD 03:23 → EDBEDREQ 04:35 → PCU 3S 04:57
PROVIDERS: ADMIT Internal Medicine Sleep Medicine; ATTEND Family Medicine
DX: I11.0 Hypertensive heart disease with heart failure (principal); I50.23 Acute on chronic systolic (congestive) heart failure; N17.0 Acute kidney failure with tubular necrosis; J44.1 Chronic obstructive pulmonary disease with (acute) exacerbation; I08.1 Rheumatic disorders of both mitral and tricuspid valves; R26.2 Difficulty in walking, not elsewhere classified; I48.0 Paroxysmal atrial fibrillation; E11.9 Type 2 diabetes mellitus without complications; Z79.01 Long term (current) use of anticoagulants; Z79.4 Long term (current) use of insulin; Z79.84 Long term (current) use of oral hypoglycemic drugs; Z79.899 Other long term (current) drug therapy; Z87.891 Personal history of nicotine dependence
CPT/HCPCS: 36415; 71045; 80048; 80053; 80061; 80305; 82570; 82948; 83036; 83735; 83880; 83935; 84145; 84300; 84443; 84484; 85008; 85025; 86140; 87081; 93005; 93306; 94640; 94760; 96374; 97116; 97161; 97530; 99285; A4615; A4649; A6213; G0378; J0282; J0456; J0696; J1200; J1815; J1938; J2919; J3490; J7040